=== PATIENT | female | born 1940 | race Caucasian/White ===

== ENCOUNTER 2020-11-13 09:02 | Outpatient (CLI) | payer MEDICARE, OTHER, SELFPAY ==
--- NOTE | 2020-11-13 09:13 | USCV_ITS ---
Areli Saul Age: 80 Gender: F : 1940 Exam Date: 11/13/2020 09:37 Ordering Phys: Dayna Valdez MD Technologist: Marco Antonio Hebert [place] [facility] [place]: PALPITATIONS/ SUPRAVENTRICULAR TACHYCARDIA BP: 154 / 57 HR: 58 Rhythm: PVCs Technical Quality: Good MEASUREMENTS (Male / Female) Normal Values 2D ECHO LV Diastolic Diameter PLAX 5.1 cm 4.2 - 5.9 / 3.9 - 5.3 cm LV Systolic Diameter PLAX 3.6 cm IVS Diastolic Thickness 1.2 cm 0.6 - 1.0 / 0.6 - 0.9 cm IVS Systolic Thickness 1.3 cm LVPW Diastolic Thickness 1.5 cm 0.6 - 1.0 / 0.6 - 0.9 cm LVPW Systolic Thickness 1.6 cm LVOT Diameter 2.0 cm LV Ejection Fraction 2D Teich 57.2 % LV Ejection Fraction MOD 2C 63.2 % LV Ejection Fraction 2C AL 64.0 % LA Diameter 4.3 cm LA Width 4.7 cm LA Height 5.4 cm RA Width 3.5 cm RA Height 5.4 cm Aorta at Sinotubular Diameter 2.3 cm M-MODE Aortic Annulus Diameter 2.7 cm LA Ao Ratio MM 1.6 MV E Point Septal Separation 1.4 cm DOPPLER AV Peak Velocity 137.0 cm/s LVOT Peak Velocity 88.0 cm/s AV Area Cont Eq vti 2.1 cm squared AV Area Cont Eq pk 2.1 cm squared MV Peak Velocity 606.0 cm/s MV Area PHT 2.6 cm squared Mitral E to A Ratio 1.9 MV E' Velocity 58.0 cm/s Mitral E to LV E' Septal Ratio 13.5 TR Peak Velocity 263.4 cm/s TR Peak Gradient 27.7 mmHg TR Mean Velocity 233.3 cm/s TR Mean Gradient 22.4 mmHg TR Velocity Time Integral 93.3 cm Right Atrial Pressure 3.0 mmHg Pulmonary Artery Systolic Pressu 30.7 mmHg PV Peak Velocity 53.0 cm/s RV Acceleration Time 0.0 s RV Ejection Time 0.3 s RV AcT/ET 0.1 FINDINGS Left Ventricle Moderately increased left ventricular cavity size. Severely decreased left ventricular systolic function. Left ventricular ejection fraction is estimated at 25-30 %. Global left ventricular hypokinesis. Although no diagnostic regional wall motion normality could be identified this possibility cannot be completely excluded based on the study. Abnormal diastolic function. Right Ventricle Normal right ventricular size and systolic function. Right ventricular systolic pressure 37 mmHg. Right Atrium Normal right atrial size. Left Atrium Moderately increased left atrial size. Mitral Valve Moderate mitral annular calcification. Moderately thickened mitral valve. No mitral valve stenosis. Mild mitral valve regurgitation. Aortic Valve Structurally normal trileaflet aortic valve. No aortic valve stenosis. No aortic valve regurgitation. Tricuspid Valve Structurally normal tricuspid valve. Mild tricuspid valve regurgitation. Pulmonic Valve Structurally normal pulmonic valve. No pulmonary valve stenosis. Trace pulmonary valve regurgitation. Pericardium No pericardial effusion. Aorta Normal size aortic root and proximal ascending aorta. Normal- sized inferior vena cava. CONCLUSIONS 1. This is a technically very difficult study with poor apical windows. 2. Moderately increased left ventricular cavity size. Severely decreased left ventricular systolic function. Left ventricular ejection fraction is estimated at 25-30 %. Global left ventricular hypokinesis. Although no diagnostic regional wall motion normality could be identified this possibility cannot be completely excluded based on the study. Abnormal diastolic function. 3. Mild mitral and tricuspid valve regurgitation. 4. Mild pulmonary hypertension with pulmonary artery pressure estimated at 37 mmHg. 5. Moderately increased left atrial size. 6. No prior similar studies to compare. 7. Repeat study with ultrasound enhancing agent is recommended. Aurea De Jesus MD (Electronically Signed) Final Date: 15 November 2020 14:05 S
== END 2020-11-13 09:03 | disposition home or self-care (01) ==
PROVIDERS: PCP Internal Medicine; Visit Provider Internal Medicine Interventional Cardiology
DX: R00.2 Palpitations (principal); I47.1 Supraventricular tachycardia; I08.1 Rheumatic disorders of both mitral and tricuspid valves; I27.0 Primary pulmonary hypertension
CPT/HCPCS: 93306

== ENCOUNTER 2022-04-26 08:43 | Emergency (ER) | payer MEDICARE, OTHER, SELFPAY ==
[2022-04-26 08:51] VITALS: BP 194/98; PULSE 68; RESP 18; TEMP 36.7; O2SAT 98; BMI 27.1
--- NOTE | 2022-04-26 08:54 | CT_ITS ---
WS: [id number] CT HEAD TECHNIQUE: Noncontrast CT of the head obtained from the skullbase to the vertex. CLINICAL INFORMATION: amaurosis fugax COMPARISON: None. DLP: 1069.[address] scans at [facility] use at least one of these dose optimization techniques: automated e xposure control; mA and/or kV adjustment per patient size (includes targeted exams where dose is matc hed to clinical indication); or iterative reconstruction. FINDINGS: No evidence of intracranial hemorrhage or mass effect. Ventricular system and basal cisterns are duenas nt. Moderate small vessel changes with mild parenchymal volume loss. No extra-axial fluid collections . No evidence of mass or mass effect. Vascular calcification. Inspissated secretions in the LEFT sphenoid sinus. Complete opacification LEFT sphenoid sinus. Mastoi d air cells are well aerated. Intracranial vascular calcification. CT/CT head wo con* [id number] IMPRESSION: 1. No evidence of intracranial hemorrhage or mass effect. 2. Moderate small vessel changes. Mild parenchymal volume loss. 3. Complete opacification LEFT sphenoid sinus with inspissated secretions. 4. No acute intracranial findings.
[2022-04-26 09:00] VITALS: BP 174/77; PULSE 62; RESP 16; O2SAT 97
--- NOTE | 2022-04-26 09:12 | ECG_ITS ---
[facility] Test Date: 2022-04-26 Pat Name: Areli Saul Department: Room: Gender: Female Event Sales Assistant: : 1940 Requested By: Jhonatan Kunz Order Number: [id number] Aniceto MD: Aurea De Jesus M.D. Measurements Intervals [place] Rate: 59 P: 70 NC: 196 QRS: 27 QRSD: 121 T: -30 QT: 448 QTc: 445 Interpretive Statements SINUS BRADYCARDIA WITH OCCASIONAL VENTRICULAR PREMATURE COMPLEXES INDETERMINATE AXIS MODERATE INTRAVENTRICULAR CONDUCTION DELAY [110+ ms QRS DURATION] ST DEVIATION AND MODERATE T-WAVE ABNORMALITY, CONSIDER LATERAL ISCHEMIA [-0.1+ mV T-WAVE IN I/aVL/V5/V6] ST DEVIATION AND MODERATE T-WAVE ABNORMALITY, CONSIDER INFERIOR ISCHEMIA [-0.1+ mV T-WAVE IN II/aVF] No previous ECG available for comparison Electronically Signed On 04-26-2022 16:46:37 WHEEL FILLER by Aurea De Jesus M.D. [id number]
[2022-04-26 09:29] LABS: Basophils % 0.5 %; Eosinophils # 0.1 10^3/uL (0.0-0.8); Eosinophils % 1.4 %; Hematocrit 45.9 % (37.0-47.0); Hemoglobin 14.5 g/dL (11.5-15.3); Lymphocytes # 1.7 10^3/uL (0.8-4.8); Lymphocytes % 27.5 %; Mean Corpuscular HGB Conc 31.6 g/dL (30.0-36.0); Mean Corpuscular Hemoglobin 28.9 pg (28.0-34.0); Mean Corpuscular Volume 91.6 fl (81-99); Mean Platelet Volume 11.5 fL (7.4-10.4); Monocytes # 0.5 10^3/uL (0.2-0.9); Monocytes % 8.6 %; Neutrophils % 61.8 %; Nucleated Red Blood Cells % 0 %; Platelet Count 158 10^3/cmm (130-400); Red Blood Count 5.01 10^6/uL (4.1-5.3); Red Cell Distribution Width 12.9 % (12.1-15.1); White Blood Count 6.3 10^3/uL (4.0-10.0)
--- NOTE | 2022-04-26 09:32 | PC.NURSE ---
PT INFORMATION SCIENTIST ARE EQUAL NO FACIAL ASYMMETRY NOTED FACIAL MOVEMENT IS WNL SPEECH IS WNL
[2022-04-26 09:46] LABS: Alanine Aminotransferase 21 U/L (0-33); Albumin Level 4.3 g/dL (3.5-5.2); Alkaline Phosphatase 47 U/L (35-105); Anion Gap 11.9 (5-19); Aspartate Amino Transferase 23 U/L (0-32); Blood Urea Nitrogen 17 mg/dL (8-23); Calcium 9.3 mg/dL (8.5-10.5); Carbon Dioxide 28 mmol/L (22-29); Chloride 102 mmol/L (98-107); Globulin 3.2 g/dL (1.3-4.6); Glucose 101 mg/dL (65-115); Osmolality Calculated 288 mOsm/kg (285-295); Potassium 3.9 mmol/L (3.5-5.1); Sodium 138 mmol/L (136-145); Total Bilirubin 0.8 mg/dL (0.15-1.2); Total Protein 7.5 g/dL (6.6-8.7)
--- NOTE | 2022-04-26 09:46 | ED_ITS ---
HPI - Neuro Symptoms/Deficit General: Chief Complaint: Neuro Symptoms/Deficit Stated Complaint: Dr. Sifuentes stated possible stroke Time Seen by Provider: 04/26/22 08:50 Source: patient Mode of arrival: ambulatory History of Present Illness: 81-year-old female presents to the emergency room with complaints of loss of vision in her right eye yesterday. She has had a couple of other episodes recently as well. She was seen by ophthalmology yesterday referred here today because of the amaurosis fugax. She did not have any difficulty with speech or swallowing gait or balance she does chronically use a cane. She had not noticed any worsening of her balance or gait yesterday. She states now all of her symptoms have resolved. She states she was told that she had previous stroke and has a known history of hypertension she has no known history of coronary artery disease she is on statin but the dose was decreased recently. She tells me she takes an aspirin daily but does not take any clopidogrel. Location: other (Loss of vision right eye) Severity: mild Relieving factors: none Exacerbating factors: none Context: sudden onset Associated symptoms: Deny chest pain, cough, diaphoresis, fevers/chills, headache(s), anorexia, malaise, nausea, seizures, short of breath, syncope, tingling, vertigo, vomiting or weakness Treatments Prior to Arrival: none Review of Systems Const: Denies: fever(s), chills, fatigue, malaise or diaphoresis ENMT: Denies: throat pain, ear or mastoid pain, nasal discharge or nasal congestion Card: Denies: chest pain or syncope Resp: Denies: dyspnea, productive cough or non-productive cough GI: Denies: abdominal pain, nausea or vomiting : Denies: flank pain, difficulty voiding, dysuria, urinary frequency or urinary urgency Skin/Breast: Denies: rash or pruritus Neuro: Denies: headache(s) or vertigo NIH stroke score NIHSS: Level Of Consciousness - 1a: 0 Level Of Consciousness Questions - 1b: Both Correct Level Of Consciousness Commands - 1c: Both Correct Best Gaze - 2: Normal Visual Fernandez - 3: No Visual Loss Facial Palsy - 4: Normal Motor Arm Right - 5: No Drift Motor Arm Left - 5: No Drift Motor Leg Right - 6: No Drift Motor Leg Left - 6: No Drift Limb Ataxia - 7: Absent Sensory - 8: Normal Best Language - 9: No Aphasia Dysarthia - 10: Normal Extinction And Inattention - 11: 0 Score: Total Score: 0 Physical Exam Const: COMMON NORMALS: no acute distress GENERAL APPEARANCE: cooperative and comfortable ORIENTATION/CONSCIOUSNESS: Yes awake, Yes oriented to person, Yes oriented to place and Yes oriented to time HENMT: COMMON NORMALS: normocephalic, atraumatic, hearing grossly normal bilaterally, external ears normal, EAC's normal, TM's normal bilaterally, Normal nasal mucous membranes and turbinates present, moist oral mucous membranes and oropharynx normal HEAD & SCALP: normocephalic and atraumatic NOSE: Normal nasal mucous membranes and turbinates present EXTERNAL EAR: Yes external ears normal EXTERNAL AUDITORY CANAL: EAC's normal TYMPANIC MEMBRANE: TM's normal bilaterally Eye: COMMON NORMALS: Equal, round and reactive pupils present, EOMs intact bilaterally, conjunctivae normal and no scleral icterus CONJUNCTIVA: Yes conjunctivae normal PUPIL: Yes Equal, round and reactive pupils present Neck/C-Spine: COMMON NORMALS: full ROM, no lymphadenopathy, supple and no JVD Resp: COMMON NORMALS: normal respiratory effort, No retractions, No use of accessory muscles and clear to auscultation bilaterally AUSCULTATION: clear to auscultation bilaterally Cardio: COMMON NORMALS: no JVD, regular rate, regular rhythm and No murmurs present (Cardio) RATE: regular rate RHYTHM: regular rhythm GI: COMMON NORMALS: Soft to palpation and No hepatosplenomegaly present AUSCULTATION: Yes normoactive bowel sounds PALPATION: Yes Soft to palpation, No Tenderness to palpation present (GI), No Guarding due to palpation present (GI) and Yes No hepatosplenomegaly present Extremity: COMMON NORMALS: normal to inspection, capillary refill normal, no clubbing, cyanosis or edema, no calf tenderness and no pedal edema Neuro: SENSORIUM/ORIENTATION: Yes oriented to person, Yes oriented to place and Yes oriented to time Skin: COMMON NORMALS: no rashes or lesions noted GENERAL SKIN EXAM: no rashes or lesions noted Course Vital Signs: Vital signs: Vital Signs Temperature 98.1 F 04/26/22 08:51 Pulse Rate 84 04/26/22 12:37 Respiratory Rate 16 04/26/22 12:37 Blood Pressure 164/100 04/26/22 12:37 Pulse Oximetry 98 04/26/22 12:37 Oxygen Delivery Me thod 04/26/22 09:00 MDM - Neuro Symptoms/Deficit Medical Decision Making CT head is negative for stroke score is 0. Recommend she continue the aspirin and Plavix for dual platelet therapy stop and simvastatin and change instead to atorvastatin 40 mg daily. We will complete work-up as an outpatient including MRI of the head with and without contrast carotid duplex echocardiogram and event monitor return if has recurrent symptoms. Medical Records I reviewed the patient's medical records. Lab Data I reviewed the patient's lab results. 04/26/22 09:08 04/26/22 09:[address] 04/26/22 08:54 IMPRESSION: 1. No evidence of intracranial hemorrhage or mass effect. 2. Moderate small vessel changes. Mild parenchymal volume loss. 3. Complete opacification LEFT sphenoid sinus with inspissated secretions. 4. No acute intracranial findings. Laboratory Results WBC 6.3 10^3/uL (4.0-10.0) 04/26/22 09:08 RBC 5.01 10^6/uL (4.1-5.3) 04/26/22 09:08 Hgb 14.5 g/dL (11.5-15.3) 04/26/22 09:08 Hct 45.9 % (37.0-47.0) 04/26/22 09:08 MCV 91.6 fl (81-99) 04/26/22 09:08 MCH 28.9 pg (28.0-34.0) 04/26/22 09:08 MCHC 31.6 g/dL (30.0-36.0) 04/26/22 09:08 RDW 12.9 % (12.1-15.1) 04/26/22 09:08 Plt Count 158 10^3/cmm (130-400) 04/26/22 09:08 MPV 11.5 fL (7.4-10.4) H 04/26/22 09:08 Neut % (Auto) 61.8 % 04/26/22 09:08 Lymph % (Auto) 27.5 % 04/26/22 09:08 [place] % (Auto) 8.6 % 04/26/22 09:08 Eos % (Auto) 1.4 % 04/26/22 09:08 Baso % (Auto) 0.5 % 04/26/22 09:08 Neut # (Auto) 3.90 10^3/uL (1.8-7.7) 04/26/22 09:08 Lymph # (Auto) 1.7 10^3/uL (0.8-4.8) 04/26/22 09:08 [place] # (Auto) 0.5 10^3/uL (0.2-0.9) 04/26/22 09:08 Eos # (Auto) 0.1 10^3/uL (0.0-0.8) 04/26/22 09:08 Baso # (Auto) 0.0 10^3/uL (0.0-0.1) 04/26/22 09:08 Nucleated RBC % (auto) 0 % 04/26/22 09:08 Nucleated RBCs # 0.0 /100WBC 04/26/22 09:08 ESR 7 mm/hr (0-15) 04/26/22 09:08 Sodium 138 mmol/L (136-145) 04/26/22 09:08 Potassium 3.9 mmol/L (3.5-5.1) 04/26/22 09:08 Chloride 102 mmol/L (98-107) 04/26/22 09:08 Carbon Dioxide 28 mmol/L (22-29) 04/26/22 09:08 Anion Gap 11.9 (5-19) 04/26/22 09:08 BUN 17 mg/dL (8-23) 04/26/22 09:08 Creatinine 0.5 mg/dL (0.5-0.9) 04/26/22 09:08 GFR Calculation Not Reportable 04/26/22 09:08 Glucose 101 mg/dL (65-115) 04/26/22 09:08 Calculated Osmolality 288 mOsm/kg (285-295) 04/26/22 09:08 Calcium 9.3 mg/dL (8.5-10.5) 04/26/22 09:08 Total Bilirubin 0.8 mg/dL (0.15-1.2) 04/26/22 09:08 AST 23 U/L (0-32) 04/26/22 09:08 ALT 21 U/L (0-33) 04/26/22 09:08 Alkaline Phosphatase 47 U/L (35-105) 04/26/22 09:08 C-Reactive Protein 3.0 mg/L (0.0-4.9) 04/26/22 09:08 Total Protein 7.5 g/dL (6.6-8.7) 04/26/22 09:08 Albumin 4.3 g/dL (3.5-5.2) 04/26/22 09:08 Globulin 3.2 g/dL (1.3-4.6) 04/26/22 09:08 Discharge Plan Discharge Patient Disposition: Home Clinical Impression: Amaurosis fugax of right eye Condition: Stable Prescriptions: New atorvastatin 40 mg tablet 40 mg PO DAILY Qty: 30 0RF clopidogrel 75 mg tablet 75 mg PO DAILY Qty: 30 0RF Discontinued simvastatin 10 mg tablet 10 mg PO EVERY OTHER DAY No Action potassium chloride 10 mEq capsule, extended release 20 meq PO BEDTIME Vitamin B-12 100 mcg Tablet 100 mcg PO QAM metoprolol succinate 50 mg tablet extended release 24 hr 50 mg PO QAM Aspir-81 81 mg Tablet,Delayed Release (Dr/Ec) 81 mg PO BEDTIME desonide 0.05 % ointment See Rx Instructions .ROUTE .COMPLEX Rx Instructions: apply to affected topically as directed as needed lisinopril 10 mg tablet 10 mg PO QAM Nitrostat 0.4 mg Tablet, Sublingual 0.4 mg SUBLINGUAL Q5M PRN (Reason: Chest Pain) Rx Instructions: do not exceed 3 doses per episode hydrochlorothiazide 25 mg tablet 25 mg PO QAM Vitamin B-6 100 mg Tablet 100 mg PO QAM fluticasone propionate 50 mcg/actuation spray,suspension 1 spray INTRANASAL BEDTIME vitamin E 268 mg (400 unit) Capsule 1 cap PO QAM CoQ-10 100 mg Capsule 100 mg PO QAM Calcium 500 + D 500 mg-10 mcg (400 unit) Tablet 1 tab PO QAM magnesium oxide 400 mg magnesium Tablet 400 mg PO BEDTIME Discharge Orders: Discharge ED (Routine); Ordered 04/26/22 Ordered By: Jhonatan Brooks Referrals: Deonte Pittman MD [Primary Care Provider] - Discharge Diet: Usual diet Discharge Activity: Increase activity as tolerated Patient Instructions: Opioid Safety, Pain Management Activity Restrictions/Additional Instructions: You were seen today for your episode of temporary loss of vision. The CT of your head did not show any acute changes. We will schedule you for an outpatient MRI carotid duplex 48-hour Holter and echocardiogram to evaluate for other potential secondary causes of your episode yesterday. We recommend that you stop the simvastatin and start atorvastatin 40 mg daily. Continue aspirin and start clopidogrel once daily. Case management will make arrangements for you to establish with primary care physician Coding Level of Care Code ED Assembly And Packing Supervisor for Yi Horan
[2022-04-26 10:00] VITALS: BP 157/72; PULSE 64; O2SAT 95
[2022-04-26 11:00] VITALS: BP 154/64; PULSE 64; O2SAT 95
--- NOTE | 2022-04-26 11:12 | PC.NURSE ---
PT GIVEN BLANKET AND ASSISTED TO FIND COMFORT IN BED
[2022-04-26 11:54] LABS: Erythrocyte Sedimentation Rate 7 mm/hr (0-15)
[2022-04-26 12:00] VITALS: BP 162/108; PULSE 56; O2SAT 98
[2022-04-26] MEDS: amlodipine 5 mg Tablet PO (12:31)
[2022-04-26 12:37] VITALS: BP 164/100; PULSE 84; RESP 16; O2SAT 98
--- NOTE | 2022-04-26 13:10 | DCPLANNER ---
Addendum entered by Felisa Ram 06/27/22 17:19: Patient had an MRI scheduled - patient did attend appointment Patient had a followup appointment with heart care - patient did attend the echo and carotid was cancelled. Addendum entered by Felisa Ram 05/03/22 13:48: Patient has a follow up appointment scheduled for Friday, May 06, 2022 at 10:00 with heart care for a 48 hour halter monitor. Clinic will call patient with appointment information. Addendum entered by Felisa Ram 05/03/22 13:47: telephonic nurse case manager received the following message from neurology regarding follow up appointment: On 05/01/22 @ 11:01 [place] Ashley Wrote To Neurology Front Office Patient called and cancelled appt on 04/29/22. It was scheduled for 05/24/22 @ 10:00 am. Original Note: telephonic nurse case manager had message to schedule an outpatient MRI, echo, carotid duplex for patient. telephonic nurse case manager faxed signed order to centralized scheduling, who will call patient with appointment information. telephonic nurse case manager had message to schedule an appointment with heart care for a 48 hour monitor. telephonic nurse case manager faxed signed order to heart care, who will call patient with appointment information. telephonic nurse case manager had message to scheduled a follow up appointment for patient with neurology. telephonic nurse case manager sent patients information to the front office staff at neurology. Clinic will call patient with appointment information.
--- NOTE | 2022-04-29 14:14 | DCPLANNER ---
aquatics manager had message to speak with patient about getting established with a primary care physician. aquatics manager unable to speak with patient at this time.
== END 2022-04-26 12:39 | disposition home or self-care (01) ==
PROVIDERS: Emergency Provider Family Medicine; PCP Internal Medicine
DX: G45.3 Amaurosis fugax (principal); Z79.82 Long term (current) use of aspirin
CPT/HCPCS: 70450; 80053; 85025; 85651; 86140; 93005; 99285

== ENCOUNTER → 2022-05-13 09:00 | Outpatient (BNVA) | payer MEDICARE, OTHER, SELFPAY | PROVIDERS: PCP Internal Medicine; Visit Provider Internal Medicine Cardiovascular Disease | DX: G45.9 Transient cerebral ischemic attack, unspecified (principal) | CPT/HCPCS: 93225 ==

== ENCOUNTER 2022-06-04 13:18 | Outpatient (CLI) | payer MEDICARE, OTHER, SELFPAY ==
--- NOTE | 2022-06-04 | MR_ITS ---
WS: [id number] MRI BRAIN WITH AND WITHOUT CONTRAST HISTORY: AMAUROSIS FUGAX COMPARISON: None available. TECHNIQUE: Multiplanar imaging performed through the brain with MultiHance 16 ml's IV. No acute infarcts. Diffusion-weighted imaging is normal. Severe T2 and FLAIR signal hyperintensities throughout the white matter. Confluent and patchy white matter disease is present bilaterally. Prior lacunar infarct in the LEFT vivian. Additional mild ischemic disease in the vivian bilaterally. No hemorrhage. Ventricles and extra-axial spaces are normal. Clivus and pituitary gland are normal. Visualized posterior fossa and brainstem are also normal. Postcontrast images are negative for masses or vascular malformations. Dural venous sinuses are normal. Arachnoid granulation in the LEFT transverse sinus. Paranasal sinuses: Dense area consolidation and complete opacification of the LEFT sphenoid sinus was described on the prior study. Mastoid air cells: Normal. Calvarium and scalp: Hyperostosis frontalis interna. MR/MR head wo/w con [id number] IMPRESSION: 1. No acute infarct or hemorrhage. 2. Severe confluent and patchy chronic small vessel ischemic disease. 3. Prior lacunar infarct LEFT vivian. 4. Dense complete opacification LEFT sphenoid sinus. 5. No intracranial mass.
[2022-06-04] MEDS: gadobenate dimeglumine 20 mL vial IV (14:18)
== END 2022-06-04 13:19 | disposition home or self-care (01) ==
PROVIDERS: PCP Internal Medicine; Visit Provider Family Medicine
DX: G45.3 Amaurosis fugax (principal)
CPT/HCPCS: 70553; A9577